=== PATIENT | female | born 1980 | race African-American/Black ===

== ENCOUNTER 2017-01-13 12:40 | Emergency (ER) | payer SELFPAY ==
[2017-01-13 12:45] VITALS: TEMP 97.6; BMI 45.1
[2017-01-13] MEDS ORDERED: METOCLOPRAMIDE HCL INJECTION 10 MG/2 ML VIAL IVPB ONE (13:02)
--- NOTE | 2017-01-13 13:08 | PDOC ---
History of Present Illness - General Chief Complaint: Blood Pressure Problem Stated Complaint: HEADACHE, BLOOD PRESSURE PROBLEM Time Seen by Provider: 01/13/17 12:58 History Source: Patient - History of Present Illness Timing/Duration: other Severity: severe Associated Symptoms: reports: headaches, nausea/vomiting. denies: chest pain, fever/chills, malaise, shortness of breath Past History - Past Medical History Allergies/Adverse Reactions: Allergies Allergy/AdvReac Type Severity Reaction Status Date / Time shellfish derived Allergy Mild Hives Verified 01/13/17 12:45 No Known Drug Allergies Allergy Verified 01/13/17 12:45 Home Medications: Ambulatory Orders NK [No Known Home Medication] 01/13/17 COPD: No HTN: Yes (no on meds) - Suicide/Smoking/Psychosocial Hx Smoking Status: Yes Smoking History: Never smoked Have you smoked in the past 12 months: No Number of Cigarettes Smoked Daily: 0 If you are a former smoker, when did you quit?: 6yr Information on smoking cessation initiated: No Hx Alcohol Use: Yes (occasional) Drug/Substance Use Hx: No Substance Use Type: None Review of Systems - Review of Systems Constitutional: No: Chills, Fever HEENTM: No: Blurred Vision Respiratory: No: Shortness of Breath Cardiac (ROS): No: Chest Pain, Lightheadedness, Palpitations, Syncope ABD/GI: Yes: Nausea. No: Vomiting Neurological: Yes: Headache. No: Weakness *Physical Exam - Vital Signs Last Vital Signs Temp Pulse Resp BP Pulse Ox 97.6 F 86 18 162/104 99 01/13/17 12:42 01/13/17 12:42 01/13/17 12:42 01/13/17 12:42 01/13/17 12:42 - Physical Exam General Appearance: Yes: Appropriately Dressed, Mild Distress HEENT: positive: Normal Voice Neck: positive: Supple Respiratory/Chest: positive: Lungs Clear, Normal Breath Sounds. negative: Respiratory Distress Cardiovascular: positive: Regular Rate, S1, S2 Gastrointestinal/Abdominal: positive: Soft. negative: Tender, Pulsatile Mass Extremity: positive: Normal Inspection. 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 Pt c/o severe frontal headache x 2 days a/w nausea. Took alleve this am w/ no relief. 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 Pt denies vomiting, visual changes, acute sensory deficits to face, focal weakness, dizziness or slurred speech. Does report possibly tingling to RUE since yesterday. No chest pain or SOB. Does not carry a dx of HTN but has not had a physical in a long time per pt. Mother and father has h/o HTN See exam CARRENO in setting of significantly elevated BP BP 162/104 in ED, otherwise stable Non-focal on exam except for facial asymmetry 2/2 old [place] (~10 years ago) -pain control -labs and CTH head check for EOD -BP management in ED -dispo pending 01/13/17 13:59 Signed out to resident Gardner pending labs/CT/reassessment 01/13/17 15:10 *DC/Admit/Observation/Transfer Diagnosis at time of Disposition: HTN (hypertension), benign, Headache - Discharge Dispostion Disposition: HOME - Referrals Referrals: Luis Barraza MD [Staff Physician] - Nidhi Puente MD [Staff Physician] - Jason Michaels MD [Staff Physician] - - Patient Instructions Printed Discharge Instructions: DI for High Blood Pressure, How to Monitor Your Blood Pressure at Home Additional Instructions: Please return to the emergency department with any new or worsening symptoms or concerns. Please follow up with your primary care physician within the next 72 hours for tighter blood pressure control and/or medication adjustment. Please continue to use your CPAP machine at night to help prevent headaches and prevent high blood pressure. - Post Discharge Activity
--- NOTE | 2017-01-13 13:35 | PDOC ---
*Physical Exam - Vital Signs Last Vital Signs Temp Pulse Resp BP Pulse Ox 97.6 F 86 18 162/104 99 01/13/17 12:42 01/13/17 12:42 01/13/17 12:42 01/13/17 12:42 01/13/17 12:42 Heart Score/ECG Review - ECG Impressions Comment:: 01/13/17 13:35 Twelve-lead EKG was performed and reviewed by me. There is normal sinus rhythm with a normal rate. Rate of 71 The axis is normal. The intervals are normal. There is normal R wave progression There are no ST or T wave abnormalities. Impression: Normal twelve-lead EKG ED Treatment Course - LABORATORY CBC & Chemistry Diagram: 01/13/17 13:40 01/13/17 13:40 Medical Decision Making - Medical Decision Making 01/13/17 13:35 The patient was seen and evaluated in conjunction with JOSE Clay under my direct supervision, ancillary studies were reviewed. I independently interviewed and evaluated the patient and I agree with the plan as outlined by JOSE Clay . 01/13/17 16:36 The patient is a 37-year-old female no known history of hypertension complaining of 2 days of gradual onset mild headache, it was intermittent at first but now more persistent - she checked her blood pressure at work and her coworkers found to be elevated with a systolic BP of 180s, the BP here is improved at 160s SBP - the patient denies any nausea, vomiting, vision changes, numbness, tingling, weakness, neck pain, chest pain, palpitations, fevers, chills. 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 the patient had blood work that revealed no signs of end organ damage CT was negative She is feeling improved after dose of Reglan The patient does have a history of sleep apnea she is not compliant with using her CPAP, I suspect that the patient's headache, hypertension may be secondary to her sleep hygiene. I recommended that the patient use her CPAP consistently. The patient follow-up with her primary care doctor. Return precautions were discussed *DC/Admit/Observation/Transfer Diagnosis at time of Disposition: HTN (hypertension), benign, Headache - Discharge Dispostion Disposition: HOME - Referrals Referrals: Luis Barraza MD [Staff Physician] - Nidhi Puente MD [Staff Physician] - Jason Michaels MD [Staff Physician] - - Patient Instructions Printed Discharge Instructions: DI for High Blood Pressure, How to Monitor Your Blood Pressure at Home Additional Instructions: Please return to the emergency department with any new or worsening symptoms or concerns. Please follow up with your primary care physician within the next 72 hours for tighter blood pressure control and/or medication adjustment. Please continue to use your CPAP machine at night to help prevent headaches and prevent high blood pressure. - Post Discharge Activity
[2017-01-13] MEDS ORDERED: METOCLOPRAMIDE HCL INJECTION 10 MG/2 ML VIAL ONE (13:46)
--- NOTE | 2017-01-13 14:00 | PDOC ---
*Physical Exam - Vital Signs Last Vital Signs Temp Pulse Resp BP Pulse Ox 97.6 F 86 18 162/104 99 01/13/17 12:42 01/13/17 12:42 01/13/17 12:42 01/13/17 12:42 01/13/17 12:42 - Physical Exam Comments: 01/13/17 14:00 GENERAL: Awake, alert, and fully oriented, in no acute distress HEAD: No signs of trauma, normocephalic, atraumatic EYES: PERRLA, EOMI, sclera anicteric, conjunctiva clear ENT hearing grossly normal, nares patent, oropharynx clear without exudates. Moist mucosa NECK: Normal ROM, supple, no JVD, or masses LUNGS: No distress, speaks full sentences, clear to auscultation bilaterally HEART: Regular rate and rhythm, normal S1 and S2, no murmurs, rubs or gallops, peripheral pulses normal and equal bilaterally. EXTREMITIES : Normal inspection, Normal range of motion, no edema. No clubbing or cyanosis. NEUROLOGICAL: Cranial nerves II through XII grossly intact. Normal speech, normal gait, no focal sensorimotor deficits SKIN: Warm, Dry, normal turgor, no rashes or lesions noted. ED Treatment Course - LABORATORY CBC & Chemistry Diagram: 01/13/17 13:40 01/13/17 13:40 - Medications Given in the ED: ED Medications Discontinued Medications Generic Name Dose Route Start Last Admin Trade Name Freq PRN Reason Stop Dose Admin Metoclopramide HCl 10 mg 01/13/17 13:02 01/13/17 13:51 Reglan Injection - IVPB 01/13/17 13:03 10 mg ONCE ONE Administration Medical Decision Making - Medical Decision Making 01/13/17 14:06 37 yo F with h/o R face bells palsy who presents with frontal headache of 2 days duration and nausea. Physical exam benign and BP 162/104 in ED. No other complaints or neuro findings. Received handoff from Cici GARCIA. ED Course: -Metoclopramide 10 mg - CBC, CMP,Cardiac Profile, - UA, EKG, CXR 01/13/17 15:07 CBC/CMP: Unremarkable UA: Neg CT HEAD: Unremarkable 01/13/17 16:19 Patient is stable at bedside and reports resolution of headache. Advised patient to follow up and establish care with PCP for hypertension management and symptom control. Strict return precautions provided. Stable D/c. *DC/Admit/Observation/Transfer Diagnosis at time of Disposition: HTN (hypertension), benign Headache Qualifiers: Headache type: unspecified Headache chronicity pattern: acute headache Intractability: intractable Qualified Code(s): R51 - Headache - Discharge Dispostion Disposition: HOME Admit: No - Referrals Referrals: Luis Barraza MD [Staff Physician] - Jason Michaels MD [Staff Physician] - Nidhi Puente MD [Staff Physician] - - Patient Instructions Printed Discharge Instructions: DI for High Blood Pressure, How to Monitor Your Blood Pressure at Home Additional Instructions: Please return to the emergency department with any new or worsening symptoms or concerns. Please follow up with your primary care physician within the next 72 hours for tighter blood pressure control and/or medication adjustment. - Post Discharge Activity - Attestations Physician Attestion: 01/13/17 15:09 I attest to the information provided
[2017-01-13 14:03] LABS: BASOPHIL 0.4 % (0-2.0); EOSINOPHIL 0.8 % (0-4.5); MCH 26.7 pg (25.7-33.7); MCHC 32.3 g/dl (32.0-36.0); MEAN CELL VOLUME 82.6 fl (80-96); MEAN PLT VOLUME 7.6 fl (7.5-11.1); NEUTROPHILS 54.6 % (42.8-82.8); PLATELET COUNT 289 K/MM3 (134-434); RDW 14.8 % (11.6-15.6); WHITE BLOOD COUNT 7.7 K/mm3 (4.0-10.0)
[2017-01-13 14:27] LABS: URINE APPEARANCE SLCLOUDY; URINE BILIRUBIN NEGATIVE (NEGATIVE); URINE BLOOD NEGATIVE (NEGATIVE); URINE COLOR LTYELLOW; URINE GLUCOSE (UA) NEGATIVE (NEGATIVE); URINE KETONE NEGATIVE (NEGATIVE); URINE NITRITE NEGATIVE (NEGATIVE); URINE PROTEIN NEGATIVE (NEGATIVE); URINE UROBILINOGEN NEGATIVE mg/dL (0.2-1.0)
[2017-01-13 14:29] LABS: ALBUMIN 3.3 g/dl (3.4-5.0); ANION GAP 11 (8-16); CALCIUM 8.5 mg/dL (8.5-10.1); CO2 24 mmol/L (21-32); CREATININE 0.7 mg/dL (0.55-1.02); GLUCOSE,RANDOM 86 mg/dL (74-106); SGOT/AST 13 U/L (15-37); SGPT/ALT 17 U/L (12-78)
[2017-01-13 14:31] LABS: ALK PHOS 75 U/L (45-117); BILIRUBIN,TOTAL 0.2 mg/dL (0.2-1.0); CPK 116 IU/L (26-192); TOT PROT 7.4 g/dl (6.4-8.2); TROPONIN I < 0.02 ng/ml (0.00-0.05)
[2017-01-13 16:08] VITALS: BP 161/100; PULSE 80
[2017-01-13 20:19] LABS: URINE LEUK ESTERASE Negative (NEGATIVE)
--- NOTE | 2017-01-16 14:04 | EKG ---
Test Reason : Blood Pressure : / mmHG Vent. Rate : 071 BPM Atrial Rate : 071 BPM P-R Int : 172 ms QRS Dur : 092 ms QT Int : 400 ms P-R-T Axes : 060 006 015 degrees QTc Int : 434 ms NORMAL SINUS RHYTHM NORMAL ECG WHEN COMPARED WITH ECG OF 05-JUN-2015 14:41, VENT. RATE HAS DECREASED BY 35 BPM Confirmed by CASTRO CHRISTIANSON MD ([id number]) on 01/16/2017 2:04:41 PM Referred By: Confirmed By:CASTRO CHRISTIANSON MD
== END 2017-01-13 16:51 | disposition home or self-care (01) ==
LOC: JER 12:40
PROC: 3E033GC Introduction of Other Therapeutic Substance into Peripheral Vein, Percutaneous Approach (ICD-10-PCS; principal; 2017-01-13)
DX: I10 Essential (primary) hypertension (principal); G44.89 Other headache syndrome
CPT/HCPCS: 36415; 70450-TC; 71020-TC; 80053; 81003; 82550; 84484; 84703; 85025; 93005; 93010; 99283-25

== ENCOUNTER 2018-11-19 16:57 | Emergency (ER) | payer BC ==
[2018-11-19 17:05] VITALS: BMI 37.2
--- NOTE | 2018-11-19 19:12 | PDOC ---
History of Present Illness - General Chief Complaint: Blood Pressure Problem Stated Complaint: HEADACHE, HIGH BP SENT BY URGENT CARE Time Seen by Provider: 11/19/18 19:05 History Source: Patient Exam Limitations: No Limitations - History of Present Illness Initial Comments: Mare Marsh is a 38 yo obese F w a pmh of bells palsy with residual right facial weakness since 2013, repeated ER visits for high BP readings, hysterectomy, and left breast nodulectomy who presents to the [facility] er from urgent care with an elevated BP at home of 210 over 130 associated with a headache, nausea, earlier today, and chest pain earlier today which is not present in the ER. Here in the ER her BP is 182/98 and she endorses a slight generalized headache. She took 400 mg of motrin yesterday and 1000 mg of tylenol earlier today. The patient states she does not have a primary care doctor and does not have a formal diagnosis of hypertension. She states she has had a hysterectomy and has not had a menstrual period in the past 8 years. PCP: None PSH: hysterectomy, right breast nodulectomy Social Hx: Smokes 2 cigarettes/day, drinks 4 beers a week, denies illicit drug usage. Allergies: Shellfish, NKDA Past History - Past Medical History Allergies/Adverse Reactions: Allergies Allergy/AdvReac Type Severity Reaction Status Date / Time shellfish derived Allergy Mild Hives Verified 11/19/18 17:05 No Known Drug Allergies Allergy Verified 11/19/18 17:05 Home Medications: Ambulatory Orders Hydrochlorothiazide [Hctz -] 25 mg PO DAILY #7 tablet 11/19/18 Hydrochlorothiazide [Hctz -] 25 mg PO DAILY #7 tablet 11/19/18 COPD: No HTN: Yes (no on meds) Other medical history: BELLS PALSY - Suicide/Smoking/Psychosocial Hx Smoking Status: Yes Smoking History: Never smoked Have you smoked in the past 12 months: No Number of Cigarettes Smoked Daily: 0 If you are a former smoker, when did you quit?: 6yr Information on smoking cessation initiated: No Hx Alcohol Use: No Drug/Substance Use Hx: No Substance Use Type: None Review of Systems - Review of Systems Able to Perform ROS?: Yes Comments:: CONSTITUTIONAL: Absent: fever, no chills, no fatigue EYES: Absent: visual changes ENT: Absent: ear pain, no sore throat CARDIOVASCULAR: Present: Chest pain Absent: no palpitations RESPIRATORY: Absent: cough, no SOB GI: Present: Nausea Absent: abdominal pain, no vomiting, no constipation, no diarrhea GENITOURINARY: Absent: dysuria, no frequency, no hematuria MUSKULOSKELETAL: Absent: back pain, no arthralgia, no myalgia SKIN: Absent: rash NEURO: Absent: headache *Physical Exam - Vital Signs Last Vital Signs Temp Pulse Resp BP Pulse Ox 98.3 F 91 H 19 182/98 H 100 11/19/18 17:02 11/19/18 17:02 11/19/18 17:02 11/19/18 17:02 11/19/18 17:02 - Physical Exam Comments: GENERAL: Well-appearing, well-nourished. No apparent distress. HEENT: Normocephalic, atraumatic. PERRL, EOM intact. CARDIOVASCULAR: Normal S1, S2. Regular rate and rhythm. PULMONARY: No evidence of respiratory distress. Lungs clear to auscultation bilaterally. No wheezing, rales or rhonchi. ABDOMEN: Soft, non-distended, non-tender. EXTREMITIES: Normal ROM in all four extremities. No gross deformities. SKIN: Warm, dry. No rash NEUROLOGICAL: Alert, awake, appropriate. There is right facial weakness including the right forehead and lower face. No deficits to light touch in upper extremities and lower extremities. No motor deficits in the in upper extremities and lower extremities. ormal speech. Gait is normal without ataxia. ED Treatment Course - LABORATORY CBC & Chemistry Diagram: 11/19/18 19:31 11/19/18 19:31 - RADIOLOGY Radiograph Interpretation: Head CT: HISTORY PROVIDED: Rule out bleed TECHNIQUE: Sequential axial images were obtained from the base of the skull to the vertex. There is no evidence of acute intracranial hemorrhage, mass lesions or infarctions. The visualized paranasal sinuses and mastoid air cells are clear. There is no evidence of fracture or acute bony pathology. IMPRESSION: Normal CT scan of the head with no evidence of acute intracranial pathology. 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 Here in the ER her BP is 182/98 and she endorses a slight generalized headache. She took 400 mg of motrin yesterday and 1000 mg of tylenol earlier today. The patient states she does not have a primary care doctor and does not have a formal diagnosis of hypertension. She states she has had a hysterectomy and has not had a menstrual period in the past 8 years. Vital Signs Temp Pulse Resp BP Pulse Ox 98.3 F 91 H 19 182/98 H 100 11/19/18 17:02 11/19/18 17:02 11/19/18 17:02 11/19/18 17:02 11/19/18 17:02 DDx IBNLT: Hypertensive emergency/encephelopathy vs hypertensive urgency, ICH, ACS/SC, electrolyte/metabolic disturbance, ERASTO, heart failure, migraine vs tension vs cluster Plan: Labs, Head CT, EKG, analgesia, re-assess. EKG: NS rate of 78, narrow complex, normal axis, left atrial hypertrophy, Biphasic T wave in v2, no abnormal TWI's. Head CT: Unremarkable with no acute pathology Labs: Notable for mild hypokalemia - repleting with oral potassium. Trop and BNP normal. No ERASTO. Re-assessment: Patient is no asymptomatic in ER after reglan, IVNS, and tylenol. Disposition: Home with PCP fu - 1 week course of HCTZ sent to her pharmacy. *DC/Admit/Observation/Transfer Diagnosis at time of Disposition: Asymptomatic hypertension - Discharge Dispostion Disposition: HOME Condition at time of disposition: Improved Decision to Admit order: No - Prescriptions Prescriptions: Hydrochlorothiazide [Hctz -] 25 mg PO DAILY #7 tablet Hydrochlorothiazide [Hctz -] 25 mg PO DAILY #7 tablet - Referrals Referrals: [facility] [place] [facility] [Provider Group] - Patient Instructions Printed Discharge Instructions: DI for High Blood Pressure, How to Monitor Your Blood Pressure at Home Additional Instructions: You came into the ER with elevated blood pressure. We did a head CT which showed you are not bleeding in your head. It is extremely important for you to follow up with the regular doctor we are referring you to in the next 3 to 5 days. We are sending a blood pressure medication to your local pharmacy - please make sure to go and pick it up and take it once a day for the next 7 days. Come back to the ER immediately if you get a headache feel nauseous, have chest pain, or have any other new or worsening concerns. Thank you for coming to the [facility] ER. We hope you feel better soon! Print Language: GREENLANDIC - Post Discharge Activity Forms/Work/School Notes: Back to Work
[2018-11-19] MEDS ORDERED: ACETAMINOPHEN 325 MG TABLET (FP) PO ONE (19:20)
[2018-11-19] MEDS ORDERED: METOCLOPRAMIDE HCL INJECTION 10 MG/2 ML VIAL IVPUSH ONE (19:20)
[2018-11-19 19:55] LABS: BASO % 0.3 % (0-2.0); EOS % 0.2 % (0-4.5); HEMATOCRIT 41.5 % (32.4-45.2); HEMOGLOBIN 13.5 GM/dL (10.7-15.3); LYMPH % 21.6 % (8-40); MCH 28.2 pg (25.7-33.7); MCHC 32.5 g/dl (32.0-36.0); MEAN CELL VOLUME 86.9 fl (80-96); MEAN PLT VOLUME 7.6 fl (7.5-11.1); MONO % 6.8 % (3.8-10.2); NEUT % 71.1 % (42.8-82.8); PLATELET COUNT 281 K/MM3 (134-434); RBC 4.77 M/mm3 (3.60-5.2); RDW 14.6 % (11.6-15.6); WHITE BLOOD COUNT 6.9 K/mm3 (4.0-10.0)
--- NOTE | 2018-11-19 20:11 | PDOC ---
Attending Attestation - Resident Resident Name: Zach Guzman - ED Attending Attestation I have performed the following: I have examined & evaluated the patient, The case was reviewed & discussed with the resident, I agree w/resident's findings & plan - HPI HPI: see resident hpi - Physicial Exam PE: 11/19/18 22:29 agree with resident exam - Medical Decision Making 11/19/18 22:29 11/19/18 22:12 38-year-old female with history of hypertension now with remote complaints of chest pain as well as headache On reevaluation at 10:15 PM patient is completely asymptomatic after IV fluids Reglan and Tylenol CT scan of the brain shows no acute abnormality EKG does shows no acute ST elevations Rhythm strip shows a sinus rhythm at 75-80 bpm Will DC on hydrochlorothiazide 25 mg daily for 7 days to allow patient to obtain primary care Patient was on an antihypertensive but cannot remember the name 11/19/18 22:29
[2018-11-19] MEDS ORDERED: METOCLOPRAMIDE HCL INJECTION 10 MG/2 ML VIAL ONE (20:23)
[2018-11-19] MEDS ORDERED: ACETAMINOPHEN 325 MG TABLET (FP) ONE (20:23)
[2018-11-19 20:29] LABS: ALBUMIN 3.6 g/dl (3.4-5.0); BILIRUBIN,TOTAL 0.4 mg/dL (0.2-1); BLOOD UREA NITROGEN 10.3 mg/dL (7-18); CREATININE 0.7 mg/dL (0.55-1.3); N-TERMINAL BNP 41.1 pg/ml (5-125); POTASSIUM 3.4 mmol/L (3.5-5.1); TOT PROT 7.6 g/dl (6.4-8.2)
[2018-11-19] MEDS ORDERED: POTASSIUM CHLORIDE TABS 20 MEQ TABLET.ER (FP) PO ONE ×2 (20:40→21:09)
[2018-11-19 22:07] VITALS: BP 181/112
[2018-11-19] MEDS ORDERED: HYDROCHLOROTHIAZIDE 25 MG TABLET (FP) PO ONE (22:10)
[2018-11-19] MEDS ORDERED: HYDROCHLOROTHIAZIDE 25 MG TABLET (FP) ONE (22:25)
[2018-11-19 22:33] VITALS: PULSE 88; TEMP 98.5
--- NOTE | 2018-11-20 10:58 | EKG ---
Test Reason : Blood Pressure : / mmHG Vent. Rate : 078 BPM Atrial Rate : 078 BPM P-R Int : 172 ms QRS Dur : 088 ms QT Int : 416 ms P-R-T Axes : 055 000 019 degrees QTc Int : 474 ms NORMAL SINUS RHYTHM POSSIBLE LEFT ATRIAL ENLARGEMENT BORDERLINE ECG WHEN COMPARED WITH ECG OF 13-JAN-2017 13:32, NO SIGNIFICANT CHANGE WAS FOUND Confirmed by Justino Patel ([id number]) on 11/20/2018 10:58:13 AM Referred By: Confirmed By:Justino Patel
== END 2018-11-19 22:52 | disposition home or self-care (01) ==
LOC: JER 16:57
PROC: 3E033GC Introduction of Other Therapeutic Substance into Peripheral Vein, Percutaneous Approach (ICD-10-PCS; principal; 2018-11-19)
DX: I10 Essential (primary) hypertension (principal); G51.0 Bell's palsy
CPT/HCPCS: 36415; 70450-TC; 71046-TC-FY; 80053; 83880; 84484; 84703; 85025; 93005; 93010; 99283-25

== ENCOUNTER 2019-03-27 09:41 | Emergency (ER) | payer BC ==
[2019-03-27] MEDS ORDERED: ONDANSETRON 4 MG/2 ML VIAL IVPUSH ONE (10:21)
[2019-03-27] MEDS ORDERED: SODIUM CHLORIDE 0.9% 1000 ML INFUS.BAG IV ONE (10:22)
[2019-03-27 10:35] VITALS: BMI 34.3
[2019-03-27] MEDS ORDERED: ACETAMINOPHEN 1000 MG/100 ML VIAL (NON FORMULARY) IVPB ONE (10:40)
--- NOTE | 2019-03-27 10:40 | PDOC ---
History of Present Illness - General Chief Complaint: Cold Symptoms Stated Complaint: BODY ACHES CHILLS 1 DAY AND COUGH 3 DAYS History Source: Patient Exam Limitations: No Limitations - History of Present Illness Initial Comments: 03/27/19 10:37 39-year-old female no past medical history here today complaining of cough generalized body aches sore throat fever nausea and vomiting. Patient states her symptoms started yesterday while at work she describes upper abdominal pain followed by multiple episodes of bilious nonbloody vomit. Patient is also having a cough which is nonproductive. Describes generalized body aches and headache. 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 No recent travel no rash no known sick contacts did not take anything for her symptoms prior to arrival 03/27/19 13:07 past surgical history : Hysterctomy Past History - Past Medical History Allergies/Adverse Reactions: Allergies Allergy/AdvReac Type Severity Reaction Status Date / Time shellfish derived Allergy Mild Hives Verified 03/27/19 09:43 No Known Drug Allergies Allergy Verified 03/27/19 09:43 Home Medications: Ambulatory Orders Hydrochlorothiazide [Hctz -] 25 mg PO DAILY #7 tablet 11/19/18 COPD: No HTN: Yes (no on meds) - Psycho Social/Smoking Cessation Hx Smoking Status: Yes Smoking History: Never smoked Have you smoked in the past 12 months: No Number of Cigarettes Smoked Daily: 0 If you are a former smoker, when did you quit?: 6yr Information on smoking cessation initiated: No Hx Alcohol Use: Yes (OCCASSIONAL) Drug/Substance Use Hx: No Substance Use Type: None Review of Systems - Review of Systems Constitutional: Yes: Chills HEENTM: Yes: Nose Congestion, Throat Pain Respiratory: Yes: Cough. No: Wheezing Cardiac (ROS): No: Chest Pain ABD/GI: Yes: Nausea, Vomiting : No: Burning, Dysuria Musculoskeletal: No: Back Pain Integumentary: No: Rash All Other Systems: Reviewed and Negative *Physical Exam - Vital Signs Last Vital Signs Temp Pulse Resp BP Pulse Ox 101.6 F H 112 H 16 150/110 H 98 03/27/19 09:43 03/27/19 09:43 03/27/19 09:43 03/27/19 09:43 03/27/19 09:43 - Physical Exam 03/27/19 10:38 Awake alert no acute distress lungs are clear bilaterally heart is regular with any murmurs rubs or gallops abdomen is soft there is mild right upper quadrant epigastric and left upper quadrant tenderness no rebound no guarding extremities are warm and well-perfused skin is warm and dry no rash overall patient is well-appearing. Neurologically there is a cranial nerve VII deficit on the right face which is old. Otherwise she is awake alert ambulating without difficulty and speech is clear moving all 4 extremities ED Treatment Course - LABORATORY CBC & Chemistry Diagram: 03/27/19 11:00 03/27/19 11:00 Medical Decision Making - Medical Decision Making 03/27/19 10:39 39-year-old female here today with cough body aches nausea vomiting febrile to 101.9. Differential includes viral syndrome such as flu, pneumonia, dehydration , gastroenteritis. Plan IV hydration basic labs chest x-ray to rule out underlying pneumonia symptomatic treatment with Zofran Tylenol 03/27/19 12:29 pt feels much improved. after tylenol and iv hydration. cxr pending. ua pending. 03/27/19 13:48 pt feels improved. cxr negative. labs unremarkable. ua on infection, noted dehydration. jennifer influenzae. dc home. Discharge - Discharge Information Problems reviewed: Yes Clinical Impression/Diagnosis: Viral syndrome, Influenza Condition: Improved Disposition: HOME - Admission No - Follow up/Referral - Patient Discharge Instructions Patient Printed Discharge Instructions: Influenza Additional Instructions: you should not go to school or work until no fever for 24 - 48 hours. you should drink plenty of liquids, get plenty of rest. return for shortness of breath, persistant vomiting or any concerns .your chest xray is negative for pneumonia. you likley have the Influenzae virus. - Post Discharge Activity Work/Back to School Note: Back to Work
[2019-03-27] MEDS ORDERED: ACETAMINOPHEN INJECTION 100 ML IVPB ONE (10:54)
[2019-03-27] MEDS ORDERED: ONDANSETRON 4 MG/2 ML VIAL ONE (10:54)
[2019-03-27 11:10] LABS: BASO % 1.1 % (0-2.0); EOS % 0.1 % (0-4.5); HEMOGLOBIN 14.1 GM/dl (10.7-15.3); LYMPH % 8.7 % (8-40); MCH 29.5 pg (25.7-33.7); MCHC 33.6 g/dl (32.0-36.0); MEAN CELL VOLUME 87.6 fl (80-96); MEAN PLT VOLUME 7.6 fl (7.5-11.1); MONO % 7.7 % (3.8-10.2); NEUT % 82.4 % (42.8-82.8); PLATELET COUNT 227 K/MM3 (134-434); RBC 4.79 M/mm3 (3.60-5.2); RDW 13.8 % (11.6-15.6); WHITE BLOOD COUNT 5.4 K/mm3 (4.0-10.8)
[2019-03-27 12:02] LABS: ALBUMIN 3.5 g/dl (3.4-5.0); BILIRUBIN,TOTAL 0.3 mg/dL (0.2-1); BLOOD UREA NITROGEN 9.3 mg/dL (7-18); CALCIUM 8.9 mg/dL (8.5-10.1); CREATININE 0.8 mg/dL (0.55-1.3); POTASSIUM 3.6 mmol/L (3.5-5.1); TOT PROT 7.8 g/dl (6.4-8.2)
[2019-03-27 12:22] VITALS: BP 115/75; PULSE 95; TEMP 99.9
[2019-03-27 13:12] LABS: EPITHELIAL CELLS FEW /hpf; URINE MUCUS 1+
== END 2019-03-27 13:57 | disposition home or self-care (01) ==
LOC: FER 09:41
PROC: 3E033NZ Introduction of Analgesics, Hypnotics, Sedatives into Peripheral Vein, Percutaneous Approach (ICD-10-PCS; principal; 2019-03-27)
PROC: 3E033GC Introduction of Other Therapeutic Substance into Peripheral Vein, Percutaneous Approach (ICD-10-PCS; 2019-03-27)
PROC: 3E0337Z Introduction of Electrolytic and Water Balance Substance into Peripheral Vein, Percutaneous Approach (ICD-10-PCS; 2019-03-27)
DX: B34.9 Viral infection, unspecified (principal); J11.1 Influenza due to unidentified influenza virus with other respiratory manifestations; Z91.013 Allergy to seafood; Z87.891 Personal history of nicotine dependence; I10 Essential (primary) hypertension
CPT/HCPCS: 36415; 71046-TC-FY; 80053; 81003; 81015; 83690; 85025; 99283-25; J0131; J7030

== ENCOUNTER 2020-08-09 11:45 | Emergency (ER) | payer SELFPAY ==
[2020-08-09] MEDS ORDERED: amLODIPine BESYLATE 5 MG TABLET (FP) PO ONE ×2 (12:16→14:18)
[2020-08-09 12:18] VITALS: TEMP 97.8; BMI 34.3
[2020-08-09] MEDS ORDERED: amLODIPine BESYLATE 5 MG TABLET (FP) ONE ×2 (12:30→14:18)
[2020-08-09 13:01] LABS: BASO % 0.9 % (0-2.0); EOS % 0.2 % (0-4.5); HEMATOCRIT 40.8 % (32.4-45.2); HEMOGLOBIN 13.6 GM/dl (10.7-15.3); LYMPH % 31.5 % (8-40); MCH 30.9 pg (25.7-33.7); MCHC 33.3 g/dl (32.0-36.0); MEAN CELL VOLUME 92.6 fl (80-96); MEAN PLT VOLUME 7.4 fl (7.5-11.1); MONO % 5.8 % (3.8-10.2); NEUT % 61.6 % (42.8-82.8); PLATELET COUNT 271 K/MM3 (134-434); RDW 15.6 % (11.6-15.6)
[2020-08-09 13:23] LABS: ALBUMIN 3.7 g/dl (3.4-5.0); BILIRUBIN,TOTAL 0.9 mg/dl (0.2-1); CALCIUM 8.7 mg/dl (8.5-10); CREATININE 0.8 mg/dl (0.55-1.3); TOT PROT 7.7 g/dl (6.4-8.2)
[2020-08-09] MEDS ORDERED: hydrALAZINE HCL 10 MG TABLET PO ONE (14:16)
[2020-08-09] MEDS ORDERED: hydrALAZINE HCL 25 MG TABLET (FP) ONE (14:18)
[2020-08-09] MEDS ORDERED: hydrALAZINE HCL 25 MG TABLET (FP) PO ONE (14:18)
[2020-08-09 15:04] VITALS: BP 168/99; PULSE 79
== END 2020-08-09 15:36 | disposition home or self-care (01) ==
LOC: FER 11:45
DX: R74.01 Elevation of levels of liver transaminase levels (principal); I10 Essential (primary) hypertension; S80.11XA Contusion of right lower leg, initial encounter
CPT/HCPCS: 36415; 80053; 85025; 93971-TC; 99284-25